=== PATIENT | male | born 1940 | race Caucasian/White ===

== ENCOUNTER → 2020-09-24 | Outpatient (CLI) | payer MEDICARE ==
--- NOTE | 2020-09-24 17:03 | XR ---
Lumbar spine with flexion and extension HISTORY: Pain in left leg, stenosis, M 48.02 7 views of lumbosacral spine There is a scoliotic curvature to the lumbar spine. There is multilevel spondylosis. No evident spond ylolysis. Lumbar vertebral bodies show preserved height and bone mineralization. There is multilevel vacuum phenomenon. No evident change in alignment on flexion and extension views. Sclerosis present i n the posterior elements is consistent with facet arthropathy. Cannot exclude an abdominal aortic ane urysm, atherosclerotic calcifications are present. IMPRESSION: Degenerative disc disease, facet arthropathy, scoliosis. Difficult to assess for change i n alignment on flexion and extension views due to patient's marked scoliotic curvature.
== END | disposition home or self-care (01) ==
LOC: RADXRMAIN 11:44
PROVIDERS: ATTEND Anesthesiology
DX: M51.36 Other intervertebral disc degeneration, lumbar region (principal); M47.816 Spondylosis without myelopathy or radiculopathy, lumbar region; M41.86 Other forms of scoliosis, lumbar region
CPT/HCPCS: 72114

== ENCOUNTER → 2023-04-16 | Outpatient (CLI) | payer MEDICARE ==
--- NOTE | 2023-04-16 15:40 | US ---
EXAMINATION TYPE: US kidneys/renal and bladder DATE OF EXAM: 04/16/2023 COMPARISON: NONE CLINICAL INDICATION: Male, 83 years old with history of R94.4 ABNORMAL RESULTS OF KIDNEY FUNCTION EKATERINA DIES; Abnormal labs EXAM MEASUREMENTS: Right Kidney: 8.0 x 4.7 x 4.4 cm Left Kidney: 9.4 x 4.4 x 4.3 cm Right Kidney: Small in size, no evidence of hydro, lower pole gassed out Left Kidney: No evidence of hydro Bladder: wnl Bilateral Jets seen: Only left jet visualized There is no evidence for hydronephrosis at this point in time. No nephrolithiasis is seen. Right kid juan is mildly smaller size compared to the left. The right lower renal pole is obscured by overlying bowel gas. No masses are identified. Cortical measured differentiation is maintained bilaterally. The urinary bladder is anechoic. Left ureteral jet is only visualized. IMPRESSION: No hydronephrosis or nephrolithiasis.
== END | disposition home or self-care (01) ==
LOC: RADUSWWP 15:10
PROVIDERS: ATTEND Family Medicine
DX: R94.4 Abnormal results of kidney function studies (principal)
CPT/HCPCS: 76770